=== PATIENT | female | born 1970 | race Hispanic/Latino ===

== ENCOUNTER 2021-08-27 18:01 | Emergency (ER) | payer OTHER ==
[~2021-08-27] VITALS: Ht 157.5 cm; Wt 80.7 kg
[2021-08-27] MEDS ORDERED: AZITHROMYCIN250 MG PO (18:39)
[2021-08-27] MEDS ORDERED: DEXAMETHASONE SOD PHOS INJ 4 MG/ML SDV ONE (18:44)
[2021-08-27] MEDS ORDERED: DEXAMETHASONE SOD PHOS INJ 4 MG/ML SDV IM ONE (18:45)
== END 2021-08-27 19:20 | disposition home or self-care (01) ==
LOC: FSED 18:25
DX: J02.9 Acute pharyngitis, unspecified (principal)
CPT/HCPCS: 99282; J1100